=== PATIENT | male | born 1950 | race Caucasian/White ===

== ENCOUNTER 2018-03-13 09:43 | Inpatient (IN) | payer OTHER ==
[~2018-03-13] VITALS: Ht 182.9 cm; Wt 79.2 kg
[2018-03-13] VITALS (7 sets, daily range): BP systolic 172–190; BP diastolic 81–93; PULSE 44–69; RESP 16–18; TEMP 98.1–98.4; O2SAT 97–99
[2018-03-13] MEDS ORDERED: PRAV80TA2 PO (10:18)
[2018-03-13] MEDS ORDERED: GLUC500T4 PO (10:18)
[2018-03-13] MEDS ORDERED: LOSA100T PO (10:18)
[2018-03-13] MEDS ORDERED: HYDR12.57 PO (10:18)
[2018-03-13] MEDS ORDERED: FLUO10TA PO (10:18)
[2018-03-13] MEDS ORDERED: HYDR-755 PO (10:18)
[2018-03-13] MEDS ORDERED: METF1000 PO (10:18)
[2018-03-13] MEDS ORDERED: SODIUM CHLORIDE 0.9% FLUSH 10 ML FLUSH IVF PRN (11:00)
--- NOTE | 2018-03-13 11:20 | RADRPT ---
EXAM DATE/TIME: 03/13/2018 10:52 [facility] COMPARISON: No previous studies available for comparison. INDICATIONS : Syncope. Facial numbness. MEDICAL HISTORY : Hypertension. Diabetes SURGICAL HISTORY : Tonsillectomy. ENCOUNTER: Initial ACUITY: 3 days PAIN SCORE: 0/10 LOCATION: Bilateral chest FINDINGS: Minimal linear parenchymal opacities at the left lung base. Cardiomediastinal contours are within nor mal limits. Bony thorax is intact. CONCLUSION: 1. Minimal left lung base atelectasis/scarring. Senthil Davison MD on March 13, 2018 at 11:17 Board Certified Radiologist. This report was verified electronically.
[2018-03-13 11:21] LABS: AUTOMATED NEUTROPHIL # 5.7 TH/MM3 (1.8-7.7); BASOPHIL % 0.5 % (0.0-2.0); EOSINOPHIL # 0.1 TH/MM3 (0-0.4); EOSINOPHIL % 1.3 % (0.0-4.0); HEMATOCRIT 47.4 % (39.0-51.0); LYMPH % 18.7 % (9.0-44.0); LYMPHOCYTE # 1.4 TH/MM3 (1.0-4.8); MEAN CORPUSCULAR HGB CONC 33.8 % (32.0-36.0); MEAN PLATELET VOLUME 8.7 FL (7.0-11.0); MONO % 5.2 % (0.0-8.0); MONOCYTE # 0.4 TH/MM3 (0-0.9); NEUT % 74.3 % (16.0-70.0); PLATELET COUNT 260 TH/MM3 (150-450); RED BLOOD COUNT 5.33 MIL/MM3 (4.50-5.90); RED CELL DISTRIBUTION WIDTH 13.3 % (11.6-17.2); WHITE BLOOD COUNT 7.6 TH/MM3 (4.0-11.0)
--- NOTE | 2018-03-13 11:30 | RADRPT ---
EXAM DATE/TIME: 03/13/2018 11:10 [facility] COMPARISON: No previous studies available for comparison. INDICATIONS : Right sided headache, slurred speech and left facial numbness RADIATION DOSE: 35.45 CTDIvol (mGy) MEDICAL HISTORY : Hypertension. Diabetes mellitus type 2. SURGICAL HISTORY : None. ENCOUNTER: Initial ACUITY: 3 days PAIN SCALE: 4/10 LOCATION: Right cranial TECHNIQUE: Multiple contiguous axial images were obtained of the head. Using automated exposure control and adj ustment of the mA and/or kV according to patient size, radiation dose was kept as low as reasonably a chievable to obtain optimal diagnostic quality images. DICOM format image data is available electro nically for review and comparison. FINDINGS: CEREBRUM: Mild diffuse cerebral atrophy. The ventricles are normal for degree of atrophy. No evidence of midli ne shift, mass lesion, hemorrhage or acute infarction. No extra-axial fluid collections are seen. POSTERIOR FOSSA: The cerebellum and brainstem are intact. The 4th ventricle is midline. The cerebellopontine angle i s unremarkable. EXTRACRANIAL: The visualized portion of the orbits is intact. SKULL: The calvaria is intact. No evidence of skull fracture. CONCLUSION: 1. Senescent changes without acute intracranial abnormality. Senthil Davison MD on March 13, 2018 at 11:25 Board Certified Radiologist. This report was verified electronically.
[2018-03-13 11:32] LABS: PROTHROMBIN TIME - PATIENT 10.3 SEC (9.8-11.6)
[2018-03-13 11:35] LABS: ALBUMIN 3.9 GM/DL (3.4-5.0); ALT (GPT) 22 U/L (12-78); AST (GOT) 15 U/L (15-37); BICARBONATE 31.9 MEQ/L (21.0-32.0); BLOOD UREA NITROGEN 10 MG/DL (7-18); CALCIUM 9.6 MG/DL (8.5-10.1); CHLORIDE 103 MEQ/L (98-107); CREATININE 1.03 MG/DL (0.60-1.30); GLOMERULAR FILTRATION RATE 72 ML/MIN (>89); GLUCOSE,RANDOM 177 MG/DL (74-106); SODIUM (NA) 141 MEQ/L (136-145)
[2018-03-13 11:40] LABS: ALKALINE PHOSPHATASE 86 U/L (45-117); TOTAL BILIRUBIN ADULT 0.9 MG/DL (0.2-1.0); TOTAL PROTEIN 7.2 GM/DL (6.4-8.2); TROPONIN I LESS THAN 0.02 NG/ML (0.02-0.05)
--- NOTE | 2018-03-13 12:40 | PD ---
HPI Chief Complaint: Neuro Symptoms/ Deficits Time Seen by Provider: 10:35 Travel History International Travel<30 days: No Contact w/Intl Traveler<30days: No Traveled to known affect area: No History of Present Illness HPI Patient presents to the emergency department for possible stroke. Went to the [place] clinic this morning because yesterday he had a left-sided headache, slurred speech, and this morning he stated that his balance was off and he had numbness in left side of his face and arm. He denies chest pain, dyspnea, nausea, vomiting, fever, chills, vision change, and no current numbness or tingling. He did not take his medication today. PFSH Past Medical History Diabetes: Yes Patient Takes Glucophage: Yes Hypertension: Yes Tetanus Vaccination: > 5 Years Influenza Vaccination: No Past Surgical History Tonsillectomy: Yes Social History Alcohol Use: No Tobacco Use: No Substance Use: No Allergies-Medications (Allergen,Severity, Reaction): Coded Allergies: Sulfa (Sulfonamide Antibiotics) (Verified Allergy, Intermediate, 03/13/18) simvastatin (Verified Allergy, Intermediate, 03/13/18) Iodinated Contrast- Oral and IV Dye (Verified Allergy, Unknown, 03/13/18) Reported Meds & Prescriptions Reported Meds & Active Scripts Active Reported Glucosamine-Chondroitin 500-400 Mg Tab 1 Tab PO DAILY Pravastatin 80 Mg Tab 80 Mg PO HS Metformin (Metformin HCl) 1,000 Mg Tab 500 Mg PO BIDPC Hydrochlorothiazide 12.5 Mg Cap 12.5 Mg PO DAILY Review of Systems Except as stated in HPI: all other systems reviewed are Neg Physical Exam Narrative GENERAL: No acute distress SKIN: Focused skin assessment warm/dry. HEAD: Atraumatic. Normocephalic. EYES: Pupils equal and round. No scleral icterus. No injection or drainage. ENT: No nasal bleeding or discharge. Mucous membranes pink and moist. NECK: Trachea midline. No JVD. CARDIOVASCULAR: Regular rate and rhythm. No murmur appreciated. RESPIRATORY: No accessory muscle use. Clear to auscultation. Breath sounds equal bilaterally. GASTROINTESTINAL: Abdomen soft, non-tender, nondistended. Hepatic and splenic margins not palpable. MUSCULOSKELETAL: No obvious deformities. No clubbing. No cyanosis. No edema. NEUROLOGICAL: Awake and alert. No obvious cranial nerve deficits. Motor grossly within normal limits. Slightly slurred speech. Sensation intact bilaterally. PSYCHIATRIC: Appropriate mood and affect; insight and judgment normal. Data Data Last Documented VS Vital Signs Date Time Temp Pulse Resp B/P (MAP) Pulse Ox O2 Delivery O2 Flow Rate FiO2 03/13/18 11:42 66 18 172/82 (112) 99 Room Air 03/13/18 09:51 98.1 Orders Orders Electrocardiogram (03/13/18 ) Electrocardiogram (03/13/18 10:46) Prothrombin Time / Inr (Pt) (03/13/18 10:46) Act Partial Throm Time (Ptt) (03/13/18 10:46) Complete Blood Count With Diff (03/13/18 10:46) Comprehensive Metabolic Panel (03/13/18 10:46) Creatine Kinase (Cpk) (03/13/18 10:46) Drug Screen, Random Urine (03/13/18 10:46) Troponin I (03/13/18 10:46) Urinalysis - C+S If Indicated (03/13/18 10:46) Ct Brain W/O Iv Contrast(Rout) (03/13/18 10:46) Chest, Single Ap (03/13/18 10:46) Ecg Monitoring (03/13/18 10:46) Iv Access Insert/Monitor (03/13/18 10:46) Oximetry (03/13/18 10:46) Sodium Chloride 0.9% Flush (Ns Flush) (03/13/18 11:00) Ckmb (Isoenzyme) Profile (03/13/18 10:46) Hydrochlorothiazide (Microzide) (03/13/18 12:45) Labs Laboratory Tests Test 03/13/18 10:15 White Blood Count 7.6 TH/MM3 Red Blood Count 5.33 MIL/MM3 Hemoglobin 16.0 GM/DL Hematocrit 47.4 % Mean Corpuscular Volume 89.0 FL Mean Corpuscular Hemoglobin 30.0 PG Mean Corpuscular Hemoglobin Concent 33.8 % Red Cell Distribution Width 13.3 % Platelet Count 260 TH/MM3 Mean Platelet Volume 8.7 FL Neutrophils (%) (Auto) 74.3 % Lymphocytes (%) (Auto) 18.7 % Monocytes (%) (Auto) 5.2 % Eosinophils (%) (Auto) 1.3 % Basophils (%) (Auto) 0.5 % Neutrophils # (Auto) 5.7 TH/MM3 Lymphocytes # (Auto) 1.4 TH/MM3 Monocytes # (Auto) 0.4 TH/MM3 Eosinophils # (Auto) 0.1 TH/MM3 Basophils # (Auto) 0.0 TH/MM3 CBC Comment DIFF FINAL Differential Comment Prothrombin Time 10.3 SEC Prothromb Time International Ratio 1.0 RATIO Activated Partial Thromboplast Time 25.2 SEC Blood Urea Nitrogen 10 MG/DL Creatinine 1.03 MG/DL Random Glucose 177 MG/DL Total Protein 7.2 GM/DL Albumin 3.9 GM/DL Calcium Level 9.6 MG/DL Alkaline Phosphatase 86 U/L Aspartate Amino Transf (AST/SGOT) 15 U/L Alanine Aminotransferase (ALT/SGPT) 22 U/L Total Bilirubin 0.9 MG/DL Sodium Level 141 MEQ/L Potassium Level 3.7 MEQ/L Chloride Level 103 MEQ/L Carbon Dioxide Level 31.9 MEQ/L Anion Gap 6 MEQ/L Estimat Glomerular Filtration Rate 72 ML/MIN Total Creatine Kinase 46 U/L Troponin I LESS THAN 0.02 NG/ML MDM Medical Decision Making Medical Screen Exam Complete: Yes Emergency Medical Condition: Yes Interpretation(s) Labs: Elevated glucose; urinalysis pending at time of admission, admit team to follow. Last Impressions Head CT 03/13/18 104 Signed Impressions: Service Date/Time: Tuesday, March 13, 2018 11:10 - CONCLUSION: 1. Senescent changes without acute intracranial abnormality. Senthil Davison MD Chest X-Ray 03/13/18 1046 Signed Impressions: Service Date/Time: Tuesday, March 13, 2018 10:52 - CONCLUSION: 1. Minimal left lung base atelectasis/scarring. Senthil Davison MD ECG sinus bradycardia at 56, LVH, insignificant Q in 1 and aVL Differential Diagnosis CVA versus TIA Narrative Course Patient presents to the emergency department with resolved headache, poor balance, slurred speech, numbness left side of the face and arm that has resolved. Will check chest x-ray, head CT, EKG, enzymes, CBC, chemistry, UA. Also give a dose of BP med as patient did not take his meds this morning. Diagnosis Primary Impression: Transient ischemic attack Qualified Codes: G45.9 - Transient cerebral ischemic attack, unspecified Additional Impression: Hypertension Qualified Codes: I10 - Essential (primary) hypertension Admitting Information Admitting Physician Requests: Admit Condition: Stable Alysa Davis MD March 13, 2018 12:40
[2018-03-13] MEDS ORDERED: HYDROCHLOROTHIAZIDE 12.5 MG CAP PO ONE (12:45)
[2018-03-13] MEDS ORDERED: GLUCAGON 1 MG/ML VIAL OTHER PRN (13:00)
[2018-03-13] MEDS ORDERED: DEXTROSE 50% IN WATER 50 ML VIAL(D50) IV PUSH PRN (13:00)
[2018-03-13] MEDS ORDERED: SODIUM CHLOR 0.9% 1000 ML INJ 1,000 ML IV SCH (13:00)
[2018-03-13] MEDS ORDERED: ENALAPRILAT 1.25 MG/ML VIAL IV PUSH PRN (13:15)
--- NOTE | 2018-03-13 13:19 | HHI.HP ---
[facility] Service [facility] Primary Care Physician [facility] Admission Diagnosis TIA Diagnoses: (1) Transient ischemic attack Diagnosis: Principal Chief Complaint: slurred speech Travel History International Travel<30 Days: No Contact w/Intl Traveler <30 Da: No Traveled to Known Affected Are: No History of Present Illness patient is a 67 y/o male with history of hypertension, diabetes mellitus and dyslipidemia who presented to ER with slurred speech. he says that he woke up this morning and his noticed that his speech was slurred. although the family said that he wasn't doing fine last night with some headache. he denies any focal weakness, dizziness. he went to [place] today where he was referred to the hospital. he denies any chest pain or sob. he doesn't recall any similar symptoms in the past. Review of Systems Constitutional: DENIES: Fever, Weight loss, Chills, Night Sweats Eyes: DENIES: Blurred vision, Diplopia, Vision loss, Double Vision Ears, nose, mouth, throat: DENIES: Tinnitus, Vertigo, Throat pain, Epistaxis Respiratory: DENIES: Apneas, Cough, Snoring, Wheezing, Hemoptysis, Sputum production, Shortness of breath Cardiovascular: DENIES: Chest pain, Palpitations, Syncope, Dyspnea on Exertion , PND, Lower Extremity Edema, Orthopnea, Claudication Gastrointestinal: DENIES: Abdominal pain, Black stools, Bloody stools, Constipation, Diarrhea, Nausea, Vomiting, Difficulty Swallowing, Anorexia Genitourinary: DENIES: Urinary frequency, Urgency, Hematuria, Dysuria Musculoskeletal: DENIES: Joint pain, Muscle aches, Stiffness, Joint Swelling Integumentary: DENIES: Rash Neurologic: COMPLAINS OF: Speech Problems, DENIES: Abnormal gait, Headache, Localized weakness, Paresthesias, Seizures, Tremor, Poor Balance Psychiatric: DENIES: Anxiety, Confusion, Mood changes, Depression, Hallucinations, Agitation, Suicidal Ideation, Homicidal Ideation, Delusions Past Family Social History Past Medical History hypertension/ diabetes mellitus/ dyslipidemia Past Surgical History none reported. Reported Medications Glucosamine-Chondroitin 500-400 Mg Tab 1 Tab PO DAILY Pravastatin 80 Mg Tab 80 Mg PO HS Metformin (Metformin HCl) 1,000 Mg Tab 500 Mg PO BIDPC Hydrochlorothiazide 12.5 Mg Cap 12.5 Mg PO DAILY Allergies: Coded Allergies: Sulfa (Sulfonamide Antibiotics) (Verified Allergy, Intermediate, 03/13/18) simvastatin (Verified Allergy, Intermediate, 03/13/18) Iodinated Contrast- Oral and IV Dye (Verified Allergy, Unknown, 03/13/18) Active Ordered Medications Inpatient Medications Dextrose (D50w (Vial) Inj) 50 ml UNSCH PRN IV PUSH HYPOGLYCEMIA-SEE COMMENTS; Start 03/13/18 at 13:00 Glucagon (Glucagon Inj) 1 mg UNSCH PRN OTHER HYPOGLYCEMIA-SEE COMMENTS; Start 03/13/18 at 13:00 Hydrochlorothiazide (Microzide) 12.5 mg ONCE ONCE PO Last administered on 03/13at 12:57; Start 03/13/18 at 12:45; Stop 03/13/18 at 12:46; Status DC Insulin Aspart (NovoLOG SUPPLEMENTAL SCALE) 1 ACHS SLIDING SCALE SQ ; Start at 17:00 Sodium Chloride 1,000 ml @ 100 mls/hr Q10H IV ; Start 03/13/18 at 13:00 Sodium Chloride (NS Flush) 2 ml UNSCH PRN IVF FLUSH AFTER USING IV ACCESS; Start 03/13/18 at 11:00 Family History stroke in father and brother. Social History no smoking or drinking. Physical Exam Vital Signs Vital Signs Date Time Temp Pulse Resp B/P (MAP) Pulse Ox O2 Delivery O2 Flow Rate FiO2 03/13/18 11:42 66 18 172/82 (112) 99 Room Air 03/13/18 10:05 61 18 182/88 (119) 97 Room Air 03/13/18 10:01 57 18 98 Room Air 03/13/18 09:51 98.1 69 18 176/93 (120) 99 Physical Exam GENERAL: This is a well-nourished, well-developed patient, in no apparent distress. SKIN: No rashes, ecchymoses or lesions. Cool and dry. HEAD: Atraumatic. Normocephalic. No temporal or scalp tenderness. EYES: Pupils equal round and reactive. Extraocular motions intact. No scleral icterus. No injection or drainage. ENT: Nose without bleeding, purulent drainage or septal hematoma. Throat without erythema, tonsillar hypertrophy or exudate. Uvula midline. Airway patent. NECK: Trachea midline. No JVD or lymphadenopathy. Supple, nontender, no meningeal signs. CARDIOVASCULAR: Regular rate and rhythm without murmurs, gallops, or rubs. RESPIRATORY: Clear to auscultation. Breath sounds equal bilaterally. No wheezes , rales, or rhonchi. GASTROINTESTINAL: Abdomen soft, non-tender, nondistended. No hepato-splenomegaly , or palpable masses. No guarding. MUSCULOSKELETAL: Extremities without clubbing, cyanosis, or edema. No joint tenderness, effusion, or edema noted. No calf tenderness. Negative Homans sign bilaterally. NEUROLOGICAL: Awake and alert. Cranial nerves II through XII intact. Motor and sensory grossly within normal limits. Five out of 5 muscle strength in all muscle groups. Normal speech. Laboratory Laboratory Tests Test 03/13/18 10:15 White Blood Count 7.6 Red Blood Count 5.33 Hemoglobin 16.0 Hematocrit 47.4 Mean Corpuscular Volume 89.0 Mean Corpuscular Hemoglobin 30.0 Mean Corpuscular Hemoglobin Concent 33.8 Red Cell Distribution Width 13.3 Platelet Count 260 Mean Platelet Volume 8.7 Neutrophils (%) (Auto) 74.3 Lymphocytes (%) (Auto) 18.7 Monocytes (%) (Auto) 5.2 Eosinophils (%) (Auto) 1.3 Basophils (%) (Auto) 0.5 Neutrophils # (Auto) 5.7 Lymphocytes # (Auto) 1.4 Monocytes # (Auto) 0.4 Eosinophils # (Auto) 0.1 Basophils # (Auto) 0.0 CBC Comment DIFF FINAL Differential Comment Prothrombin Time 10.3 Prothromb Time International Ratio 1.0 Activated Partial Thromboplast Time 25.2 Blood Urea Nitrogen 10 Creatinine 1.03 Random Glucose 177 Total Protein 7.2 Albumin 3.9 Calcium Level 9.6 Alkaline Phosphatase 86 Aspartate Amino Transf (AST/SGOT) 15 Alanine Aminotransferase (ALT/SGPT) 22 Total Bilirubin 0.9 Sodium Level 141 Potassium Level 3.7 Chloride Level 103 Carbon Dioxide Level 31.9 Anion Gap 6 Estimat Glomerular Filtration Rate 72 Total Creatine Kinase 46 Troponin I LESS THAN 0.02 Result Diagram: 03/13/18 1015 03/13/18 1015 Imaging Last Impressions Head CT 03/13/18 1046 Signed Impressions: Service Date/Time: Tuesday, March 13, 2018 11:10 - CONCLUSION: 1. Senescent changes without acute intracranial abnormality. Senthil Davison MD Chest X-Ray 03/13/18 1046 Signed Impressions: Service Date/Time: Tuesday, March 13, 2018 10:52 - CONCLUSION: 1. Minimal left lung base atelectasis/scarring. Senthil Davison MD EKG; sinus rhythm with no acute ST-T changes. Caprini VTE Risk Assessment Caprini VTE Risk Assessment: Mod/High Risk (score >= 2) Caprini Risk Assessment Model Point Value = 1 Point Value = 2 Point Value = 3 Point Value = 5 Age 41-60 Minor surgery BMI > 25 kg/m2 Swollen legs Varicose veins or History of unexplained or recurrent spontaneous Oral contraceptives or hormone replacement Sepsis (< 1 month) Serious lung disease, including pneumonia (< 1 month) Abnormal pulmonary function Acute myocardial infarction Congestive heart failure (< 1 month) History of inflammatory bowel disease Medical patient at bed rest Age 61-74 Arthroscopic surgery Major open surgery (> 45 min) Laparoscopic surgery (> 45 min) Malignancy Confined to bed (> 72 hours) Immobilizing plaster cast Central venous access Age >= 75 History of VTE Family history of VTE Factor V Leiden Prothrombin [id number] Lupus anticoagulant Anticardiolipin antibodies Elevated serum homocysteine Heparin-induced thrombocytopenia Other congenital or acquired thrombophilia Stroke (< 1 month) Elective arthroplasty Hip, pelvis, or leg fracture Acute spinal cord injury (< 1 month) Prophylaxis Regimen Total Risk Factor Score Risk Level Prophylaxis Regimen 0-1 Low Early ambulation 2 Moderate Order ONE of the following: *Sequential Compression Device (SCD) *Heparin 5000 units SQ BID 3-4 Higher Order ONE of the following medications: *Heparin 5000 units SQ TID *Enoxaparin/Lovenox 40 mg SQ daily (WT < 150 kg, CrCl > 30 mL/min) *Enoxaparin/Lovenox 30 mg SQ daily (WT < 150 kg, CrCl > 10-29 mL/min) *Enoxaparin/Lovenox 30 mg SQ BID (WT < 150 kg, CrCl > 30 mL/min) AND/OR *Sequential Compression Device (SCD) 5 or more Highest Order ONE of the following medications: *Heparin 5000 units SQ TID (Preferred with Epidurals) *Enoxaparin/Lovenox 40 mg SQ daily (WT < 150 kg, CrCl > 30 mL/min) *Enoxaparin/Lovenox 30 mg SQ daily (WT < 150 kg, CrCl > 10-29 mL/min) *Enoxaparin/Lovenox 30 mg SQ BID (WT < 150 kg, CrCl > 30 mL/min) AND *Sequential Compression Device (SCD) Assessment and Plan Assessment and Plan A/P - possible TIA vs CVA CT head with no acute abnormality. start on aspirin and continue statin- will check MRI/MRA brain, carotid doppler , echo and lipid panel- consult neurology/ PT and ST. -hypertension; hold home meds- permissive hypertension for now till MRI resulted - vasotec prn. -diabetes mellitus; hold metformin- accu-check with SSI -DVT prophylaxis with SCD's Discussed Condition With ER physician, the patient and his family. Physician Certification 2 Midnight Certification Type: Admission for Inpatient Services Order for Inpatient Services The services are ordered in accordance with Medicare regulations or non- Medicare payer requirements, as applicable. In the case of services not specified as inpatient-only, they are appropriately provided as inpatient services in accordance with the 2-midnight benchmark. Estimated LOS (days): 2 days is the estimated time the patient will need to remain in the hospital, assuming treatment plan goals are met and no additional complications. Post-Hospital Plan: Home Health Problem Qualifiers (1) Transient ischemic attack: Qualified Codes: G45.9 - Transient cerebral ischemic attack, unspecified Beni Rangel MD March 13, 2018 13:19
[2018-03-13 13:28] LABS: BILIRUBIN, URINE NEG (NEG); BLOOD, URINE NEG (NEG); GLUCOSE,URINE NEG (NEG); KETONE, URINE NEG (NEG); MUCUS URINE FEW /lpf (OCC); NITRITE,URINE NEG (NEG); PH, URINE 6.5 (5.0-8.5); URINE COLOR YELLOW (YELLW/STRAW); URINE LEUKOCYTE ESTERASE SMALL (NEG)
[2018-03-13] MEDS ORDERED: ASPIRIN EC 81 MG TABEC PO SCH (14:00)
--- NOTE | 2018-03-13 14:00 | RADRPT ---
EXAM DATE/TIME: 03/13/2018 13:25 [facility] COMPARISON: No previous studies available for comparison. INDICATIONS : Cerebrovascular accident. MEDICAL HISTORY : Hypertension. Diabetes. SURGICAL HISTORY : Tonsillectomy. ENCOUNTER: Initial ACUITY: 1 day PAIN SCORE: 0/10 LOCATION: Bilateral neck PEAK SYSTOLIC VELOCITIES (cm/sec): ICA/CCA RATIO: Right: 1.2 Left: 0.9 ICA: Right: 107 Left: 107 CCA: Right: 92 Left: 118 ECA: Right: 124 Left: 77 VERTEBRAL: Right: 50 antegrade Left: 60 antegrade Elevated flow velocities and ICA/CCA ratios have been found to correlate with increased degrees of vessel stenosis, calculated as percentage of diameter relative to a normal segment of distal ICA/CCA FINDINGS: RIGHT CAROTID: There is moderate atherosclerotic plaquing at the bifurcation. The waveform is within normal limits. LEFT CAROTID: There is mild atherosclerotic plaquing at the bifurcation. The waveform is within normal limits. VERTEBRAL ARTERIES: Antegrade flow is seen in both vertebral arteries. MISCELLANEOUS: None. CONCLUSION: 1. Atherosclerotic plaquing of the bifurcations. No hemodynamically significant carotid artery stenos is identified. Piter Chau MD on March 13, 2018 at 13:56 Board Certified Radiologist. This report was verified electronically.
--- NOTE | 2018-03-13 14:37 | RADRPT ---
EXAM DATE/TIME: 03/13/2018 14:06 [facility] COMPARISON: MRI BRAIN W/O CONTRAST, March 13, 2018, 14:06. INDICATIONS : CVA. Slurred speech for one day. MEDICAL HISTORY : Diabetes mellitus type 2. SURGICAL HISTORY : Nose sx. ENCOUNTER: Initial ACUITY: 1 day PAIN SCORE: 2/10 LOCATION: Bilateral cranial Please note a normal MRA of the brain does not entirely exclude the possibility of a small aneurysm, nor the possibility of distal intracranial vessel disease. TECHNIQUE: 3D time of flight MRA was performed. Source images, multiplanar STS MIP, and 3D volume MIP reconstru ctions were reviewed. FINDINGS: Anterior circulation: Distal intracranial internal carotid arteries are patent with flow extending to the middle and anteri or cerebral arteries. There is no evidence for aneurysm, vessel truncation or stenosis, and no eviden ce for vascular malformation. Posterior circulation: Symmetric distal vertebral arteries with flow extending to basilar artery. There is no evidence for aneurysm, vessel truncation or stenosis, and no evidence for vascular malformation. CONCLUSION: 1. Unremarkable MRA examination. Specifically, no evidence for large vessel occlusion or significant stenosis. Senthil Davison MD on March 13, 2018 at 14:31 Board Certified Radiologist. This report was verified electronically.
--- NOTE | 2018-03-13 14:42 | RADRPT ---
EXAM DATE/TIME: 03/13/2018 14:06 [facility] COMPARISON: No previous studies available for comparison. INDICATIONS : CVA. Slurred speech for one day. MEDICAL HISTORY : Diabetes mellitus type 2. SURGICAL HISTORY : Nose sx. ENCOUNTER: Initial ACUITY: 1 day PAIN SCORE: 2/10 LOCATION: Bilateral cranial TECHNIQUE: Multiplanar, multisequence MRI of the brain was performed without contrast. FINDINGS: CEREBRUM: Mild diffuse cerebral volume loss. The ventricles are normal for age. No evidence of midline shift, mass lesion, hemorrhage or acute infarction. No extraaxial fluid collections are seen. The pituitar y gland and suprasellar cistern are normal in configuration. WHITE MATTER: Zegf-al-ifabsova periventricular and scattered focal deep white matter T2 prolongation. POSTERIOR FOSSA: Focal region of increased flair and decreased T1 signal in the left liz with associated restricted d iffusion. The cerebellum and brainstem are otherwise intact. The 4th ventricle is midline. The cereb ellopontine angle is unremarkable. The cerebellar tonsils are normal in position. DIFFUSION IMAGING: No additional focal areas of restricted diffusion are seen. No evidence of acute infarction. EXTRACRANIAL: The visualized portions of the orbits and paranasal sinuses are unremarkable. CONCLUSION: 1. Findings consistent with small acute infarct in the left liz. 2. Senescent changes with mild to moderate small vessel periventricular ischemic white matter [place]. Senthil Davison MD on March 13, 2018 at 14:35 Board Certified Radiologist. This report was verified electronically.
--- NOTE | 2018-03-13 17:16 | MB ---
cc: Miguel Osorio MD DATE: 03/13/2018 HISTORY OF PRESENT ILLNESS: A 67-year-old right-handed man with a history of hypertension, non-insulin dependent diabetes, hypercholesterolemia, does not take an aspirin a day. He woke up this morning with slurred speech. He thinks it has gotten maybe a little better. SOCIAL HISTORY: Not a smoker or a drinker. Lives with his . FAMILY HISTORY: Positive for cancer and stroke in his brother. Negative for seizure. REVIEW OF SYSTEMS: He denies any insulin. He denies any history of ME, CABG, cardiac arrhythmia, stent, angioplasty, AFib, Coumadin, chest pain, palpitations. He did have a headache yesterday, fairly severe, and occasionally gets a severe headache. He denies any renal, hepatic or pulmonary disease, thyroid disease, lupus, ulcer, cancer, seizure or stroke. PHYSICAL EXAMINATION: GENERAL: On exam, he has been in sinus rhythm here. NECK: There were no carotid bruits. HEART: Regular rate and rhythm. I do not detect a murmur. VITAL SIGNS: Afebrile, 52, 16, 190/85. NEUROLOGICAL EXAMINATION: Pupils are equal. Visual gutiérrez are full. Face has a hint of a slight droopiness on the right side, but normal sensation. Tongue was midline. He had a slight right drift. No drift on the left. He had normal strength in upper and lower extremities bilaterally. DTRs are trace throughout. Toes downgoing bilaterally. Pinprick was diminished on the left arm and leg compared to the right, but intact in the face and also he is slightly ataxic on the right [id number], normal on the left. Speech is fluent. He is not aphasic, but slightly slurred. LABORATORY DATA: CBC is normal. Basic metabolic profile: Glucose 177, otherwise normal. GFR is normal. LFTs, troponin albumin, coags, urine drug screen, UA all normal. IMAGING STUDIES: He had an MRA of the white [place] of [place], which was read as normal. He had a carotid ultrasound which was read as negative. He had an MRI of the brain which shows a small acute stroke in the left liz. Review of the films shows on the FLAIR images some white matter spots, really more so on the right than the left in the white matter of the hemispheres. He has got a moderate intensity on the diffusion image, left pontine infarct, what we usually see is a rn hemodialysis charge that actually shows up on the T2 also. No hemorrhage in that area. MRA white [place] of [place] is normal. The basilar arteries and the vertebral arteries are quite robust. IMPRESSION: Probably a lacunar type infarct. He certainly has the risk factors for it. We will let his blood pressure run high, keep him on IV hydration, head of bed flat. They have put him on a statin here, which is good, and will give him 325 of aspirin. Looks like he refused an aspirin dose here. I will be following with you in the hospital. I will hold his blood pressure medication. We will check some additional blood work on him also and will do the usual stroke workup. MD NIRAJ Ureña/CHRISTINA , 04:56 PM , 05:16 PM
[2018-03-13] MEDS: SODIUM CHLOR 0.9% 1000 ML INJ 1,000 ML IV SCH (17:31)
[2018-03-13] MEDS: ASPIRIN EC 325 MG TABEC PO SCH (17:37)
[2018-03-13] MEDS: INSULIN ASPART SUPPLEMENTAL SCALE SQ SCH ×2 (17:41→20:51)
[2018-03-13] MEDS ORDERED: GADODIAMIDE PF 287 MG/ML 5 ML VIAL (for RAD MRI) IVCONTRAST ONE (19:42)
--- NOTE | 2018-03-13 19:55 | RADRPT ---
EXAM DATE/TIME: 03/13/2018 19:02 [facility] COMPARISON: No previous studies available for comparison. INDICATIONS : CVA, slurred speech and poor balance today. CONTRAST: 20 cc Omniscan (gadodiamide) IV MEDICAL HISTORY : Diabetes mellitus type 2. SURGICAL HISTORY : Nose sx. ENCOUNTER: Initial ACUITY: 1 day PAIN SCORE: 2/10 LOCATION: Bilateral cranial Percent stenosis is calculated using the diameter of the stenotic region over the diameter of the nor mal distal internal carotid artery. TECHNIQUE: Bolus infused MRA of the extracranial circulation was performed using a neurovascular coil. Post pro cessing was performed including rotating subvolume maximum intensity projections of each carotid nia ry, rotating full volume maximum intensity projections of both carotid arteries, sagittal and coronal sliding thin slab reformations of each carotid artery, and left oblique sliding thin slab reformatio n through the aortic arch to include the origin of the arch branch vessels. FINDINGS: AORTIC ARCH: There is a three vessel origin of the great vessels from the aorta. No evidence of ostial narrowing. RIGHT CAROTID: The common carotid artery is intact. The carotid bulb has a normal configuration without ulceration or narrowing. The internal carotid artery lumen is smooth without stenosis. The external carotid ar courtney is intact. LEFT CAROTID: The common carotid artery is intact. The carotid bulb has a normal configuration without ulceration or narrowing. The internal carotid artery lumen is smooth without stenosis. The external carotid ar courtney is intact. VERTEBRALS: The vertebral arteries have a symmetric diameter. No stenotic lesions are seen. CONCLUSION: Normal examination. Javon Peraza MD on March 13, 2018 at 19:51 Board Certified Radiologist. This report was verified electronically.
--- NOTE | 2018-03-13 20:40 | EKG ---
Date Performed: 03/13/2018 Time Performed: 10:02:13 PTAGE: 67 years EKG: SINUS BRADYCARDIA MINIMAL VOLTAGE CRITERIA FOR LVH BORDERLINE ECG NO PREVIOUS TRACING DOCTOR: Driss Stevens Interpretating Date/Time 03/13/2018 20:39:18
[2018-03-13] MEDS: PRAVASTATIN SOD 80 MG TAB PO SCH (20:44)
[2018-03-13 22:10] LABS: AST (GOT) 19 U/L (15-37); CHOLESTEROL 147 MG/DL (120-200)
[2018-03-14] VITALS (7 sets, daily range): BP systolic 156–174; BP diastolic 74–97; PULSE 52–64; RESP 16–18; TEMP 97.3–98.4; O2SAT 96–98
[2018-03-14] MEDS: SODIUM CHLOR 0.9% 1000 ML INJ 1,000 ML IV SCH ×2 (06:12→18:30)
--- NOTE | 2018-03-14 07:09 | HHI.PR ---
Subjective Remarks sb Objective Vital Signs Date Time Temp Pulse Resp B/P (MAP) Pulse Ox O2 Delivery O2 Flow Rate FiO2 03/14/18 06:00 97.4 64 16 162/74 (103) 97 03/14/18 04:00 61 03/14/18 00:00 97.3 52 16 156/75 (102) 98 03/13/18 23:50 44 03/13/18 22:00 59 03/13/18 20:00 98.1 56 17 182/81 (114) 98 03/13/18 19:00 98 Room Air 03/13/18 16:29 Room Air 03/13/18 16:00 98.4 62 16 190/85 (120) 98 03/13/18 15:57 03/13/18 11:42 66 18 172/82 (112) 99 Room Air 03/13/18 10:05 61 18 182/88 (119) 97 Room Air 03/13/18 10:01 57 18 98 Room Air 03/13/18 09:51 98.1 69 18 176/93 (120) 99 I/O 03/13/18 03/13/18 03/13/18 03/14/18 03/14/18 03/14/18 07:00 15:00 23:00 07:00 15:00 23:00 Intake Total 1240 ml Output Total 400 ml 200 ml Balance -400 ml 1040 ml Intake Oral 240 ml IV Total 1000 ml Output Urine Total 400 ml 200 ml # Bowel Movements 0 0 Result Diagram: 03/13/18 1015 03/13/18 1015 Objective Remarks vff minimal r droop 5/5 bue and ble speech clear mild r ataxia Assessment and Plan Assessment and Plan imp stable overnoc hob up 45 degrees if stable by noon could get oob keep ivf on and bp up asa statin fu echo prob dc tomorrow am Miguel Osorio MD March 14, 2018 07:09
[2018-03-14] MEDS: INSULIN ASPART SUPPLEMENTAL SCALE SQ SCH ×4 (08:00→20:30)
[2018-03-14 08:20] LABS: CHOLESTEROL/ HDL RATIO 4.36 RATIO; HDL CHOLESTEROL 29.1 MG/DL (40.0-60.0)
[2018-03-14] MEDS: ASPIRIN EC 325 MG TABEC PO SCH (08:46)
--- NOTE | 2018-03-14 11:03 | HHI.PR ---
Subjective Remarks Patient reports he is feeling better. States his speech is a little better. Right hand rn clinical strength is much better. Some mild right lower extremity weakness but he is able to ambulate. Objective Vitals Vital Signs Date Time Temp Pulse Resp B/P (MAP) Pulse Ox O2 Delivery O2 Flow Rate FiO2 03/14/18 08:00 60 03/14/18 08:00 97.7 55 18 161/93 (115) 97 03/14/18 06:00 97.4 64 16 162/74 (103) 97 03/14/18 04:00 61 03/14/18 00:00 97.3 52 16 156/75 (102) 98 03/13/18 23:50 44 03/13/18 22:00 59 03/13/18 20:00 98.1 56 17 182/81 (114) 98 03/13/18 19:00 98 Room Air 03/13/18 16:29 Room Air 03/13/18 16:00 98.4 62 16 190/85 (120) 98 03/13/18 15:57 03/13/18 11:42 66 18 172/82 (112) 99 Room Air I/O 03/13/18 03/13/18 03/13/18 03/14/18 03/14/18 03/14/18 07:00 15:00 23:00 07:00 15:00 23:00 Intake Total 1240 ml Output Total 400 ml 200 ml Balance -400 ml 1040 ml Intake Oral 240 ml IV Total 1000 ml Output Urine Total 400 ml 200 ml # Bowel Movements 0 0 Result Diagram: 03/13/18 1015 03/13/18 1015 Imaging Last Impressions Neck Magnetic Resonance Angiography 03/13/18 1652 Signed Impressions: Service Date/Time: Tuesday, March 13, 2018 19:02 - CONCLUSION: Normal examination. Javon Peraza MD Head CT 03/13/18 1046 Signed Impressions: Service Date/Time: Tuesday, March 13, 2018 11:10 - CONCLUSION: 1. Senescent changes without acute intracranial abnormality. Senthil Davison MD Chest X-Ray 03/13/18 1046 Signed Impressions: Service Date/Time: Tuesday, March 13, 2018 10:52 - CONCLUSION: 1. Minimal left lung base atelectasis/scarring. Senthil Davison MD Head Magnetic Resonance Angiography 03/13/18 Signed Impressions: Service Date/Time: Tuesday, March 13, 2018 14:06 - CONCLUSION: 1. Unremarkable MRA examination. Specifically, no evidence for large vessel occlusion or significant stenosis. Senthil Davison MD Carotid Artery Ultrasound 03/13/18 Signed Impressions: Service Date/Time: Tuesday, March 13, 2018 13:25 - CONCLUSION: 1. Atherosclerotic plaquing of the bifurcations. No hemodynamically significant carotid artery stenosis identified. Piter Chau MD Brain MRI 03/13/18 Signed Impressions: Service Date/Time: Tuesday, March 13, 2018 14:06 - CONCLUSION: 1. Findings consistent with small acute infarct in the left liz. 2. Senescent changes with mild to moderate small vessel periventricular ischemic white matter demyelination. Senthil Davison MD Objective Remarks GENERAL: This is a well-nourished, well-developed patient, in no apparent distress. CARDIOVASCULAR: Normal rate and regular rhythm without murmurs, gallops, or rubs. RESPIRATORY: Good respiratory efforts. Breath sounds equal and clear to auscultation bilaterally. GASTROINTESTINAL: Abdomen soft, non-tender, non-distended. Normal active bowel sounds MUSCULOSKELETAL: Extremities without cyanosis, or edema. NEURO: Minimal right facial droop. Alert & Oriented x4 to person, place, time, situation. Moves all ext x4. Right hand rn clinical strength is 4+ out of 5. Right lower extremity strength is 4+ out of 5 compared to 5 out of 5 on the left side. Mild dysarthria. PSYCH: Appropriate mood and affect. A/P Problem List: (1) Left pontine stroke ICD Code: I63.50 - Cerebral infarction due to unspecified occlusion or stenosis of unspecified cerebral artery (2) Transient ischemic attack ICD Code: G45.9 - Transient cerebral ischemic attack, unspecified Status: Acute (3) Hypertension ICD Code: I10 - Essential (primary) hypertension Status: Acute Assessment and Plan 67-year-old male with: Left pontine stroke: Symptoms significantly improved. -Continue aspirin and statin. 2D echocardiogram pending. Appreciate neurology following. PT and speech following. Hypertension: Continue to hold home medication. Permissive hypertension. Vasotec as needed. Plan to resume antihypertensives medications tomorrow. Diabetes mellitus; hold metformin- accu-check with SSI DVT prophylaxis with SCD's Discharge Planning Probable discharge tomorrow. Problem Qualifiers (1) Transient ischemic attack: Qualified Codes: G45.9 - Transient cerebral ischemic attack, unspecified (2) Hypertension: Qualified Codes: I10 - Essential (primary) hypertension Peggy Cheung MD March 14, 2018 11:03
--- NOTE | 2018-03-14 14:22 | HHI.DCPOC ---
Discharge Care Plan Diagnosis: (1) Left pontine stroke (2) Hypertension Goals to Promote Your Health * To prevent worsening of your condition and complications * To maintain your health at the optimal level Directions to Meet Your Goals Take your medications as prescribed Follow your dietary instruction Follow activity as directed Keep your appointments as scheduled Take your immunizations and boosters as scheduled If your symptoms worsen call your PCP, if no PCP go to Urgent Care Center or Emergency Room Smoking is Dangerous to Your Health. Avoid second hand smoke Call the 24-hour hour crisis hotline for domestic abuse at Peggy Cheung MD March 14, 2018 14:22
--- NOTE | 2018-03-14 17:21 | ECHRPT ---
Indication: CVA/TIA CONCLUSIONS Normal left ventricular size. Moderate concentric left ventricular hypertrophy. The left ventricular systolic function is normal with an estimated ejection fraction in the range of 55-60%. No atrial level shunt is demonstrated by color flow Doppler interrogation. Mild mitral annular calcification. There is trace tricuspid valve regurgitation. The pulmonary valve is not well visualized. BP: 161 / 93 HR: 55 Rhythm: Sinus MEASUREMENTS (Male / Female) Normal Values Technical Quality:Fair 2D ECHO LV Diastolic Diameter PLAX 3.6 cm 4.2 - 5.9 / 3.9 - 5.3 cm LV Systolic Diameter PLAX 2.7 cm IVS Diastolic Thickness 1.3 cm 0.6 - 1.0 / 0.6 - 0.9 cm LVPW Diastolic Thickness 1.3 cm 0.6 - 1.0 / 0.6 - 0.9 cm LV Relative Wall Thickness 0.7 RV Internal Dim ED PLAX 1.6 cm LVOT Diameter 1.8 cm Aortic Root Diameter 3.5 cm LA Systolic Diameter LX 3.2 cm 3.0 - 4.0 / 2.7 - 3.8 cm M-MODE AV Cusp Separation MM 1.8 cm DOPPLER AV Peak Velocity 114.0 cm/s AV Peak Gradient 5.2 mmHg AV Mean Gradient 3.0 mmHg AV Velocity Time Integral 24.2 cm LVOT Peak Velocity 70.7 cm/s LVOT Peak Gradient 2.0 mmHg LVOT Velocity Time Integral 15.7 cm AV Area Cont Eq vti 1.7 cm AV Area Cont Eq pk 1.6 cm LV E' Lateral Velocity 6.9 cm/s LV E' Septal Velocity 3.4 cm/s FINDINGS LEFT VENTRICLE Normal left ventricular size. Moderate concentric left ventricular hypertrophy. The left ventricular systolic function is normal with an estimated ejection fraction in the range of 55-60%. RIGHT VENTRICLE Normal right ventricular size and systolic function. LEFT ATRIUM The left atrial size is normal. RIGHT ATRIUM The right atrial size is normal. ATRIAL SEPTUM No atrial level shunt is demonstrated by color flow Doppler interrogation. AORTA The aortic root and proximal ascending aorta are normal in size on limited imaging. MITRAL VALVE Mild mitral annular calcification. AORTIC VALVE Trileaflet aortic valve. No aortic valve stenosis or regurgitation. TRICUSPID VALVE There is trace tricuspid valve regurgitation. PULMONARY VALVE The pulmonary valve is not well visualized. VESSELS The inferior vena cava is normal in size. PERICARDIUM No pericardial effusion. Elvin Han MD, FACC (Electronically Signed) Final Date:14 Mar 2018 17:20
[2018-03-14] MEDS: PRAVASTATIN SOD 80 MG TAB PO SCH (20:30)
[2018-03-15] VITALS (10 sets, daily range): BP systolic 149–186; BP diastolic 81–98; PULSE 48–76; RESP 16–20; TEMP 97.6–98.2; O2SAT 94–99
--- NOTE | 2018-03-15 07:38 | HHI.PR ---
Subjective Remarks sb sr Objective Vital Signs Date Time Temp Pulse Resp B/P (MAP) Pulse Ox O2 Delivery O2 Flow Rate FiO2 03/15/18 04:00 57 03/15/18 04:00 98.2 63 17 175/98 (123) 99 03/15/18 00:00 97.8 60 17 149/90 (109) 98 03/15/18 00:00 48 03/14/18 20:00 59 03/14/18 20:00 Room Air 03/14/18 20:00 98.0 54 16 174/97 (122) 98 03/14/18 16:00 98.4 62 18 168/85 (112) 97 03/14/18 16:00 Room Air 03/14/18 12:00 62 03/14/18 12:00 98.3 59 18 164/89 (114) 96 03/14/18 12:00 Room Air 03/14/18 08:00 60 03/14/18 08:00 Room Air 03/14/18 08:00 97.7 55 18 161/93 (115) 97 03/14/18 08:00 Room Air I/O 03/14/18 03/14/18 03/14/18 03/15/18 03/15/18 03/15/18 07:00 15:00 23:00 07:00 15:00 23:00 Intake Total 1240 ml 990 ml 0 ml Output Total 200 ml 950 ml Balance 1040 ml 990 ml -950 ml Intake Oral 240 ml 990 ml 0 ml IV Total 1000 ml Output Urine Total 200 ml 950 ml # Voids 2 # Bowel Movements 0 0 0 Result Diagram: 03/13/18 1015 03/13/18 1015 Objective Remarks vff minimal r droop 5/5 bue and ble speech clear mild r ataxia better nl gait Assessment and Plan Assessment and Plan imp lacunar pontine cva stable overnoc can dc later today ok to run bp 140-160m for three days then 120/70 asa 325 statin fish oil fu echo nl holter pend ok dc unless bp over 170/ fu office Miguel Osorio MD March 15, 2018 07:38
[2018-03-15] MEDS ORDERED: ASPI325T33 PO (07:57)
[2018-03-15] MEDS: INSULIN ASPART SUPPLEMENTAL SCALE SQ SCH ×4 (08:00→20:48)
--- NOTE | 2018-03-15 08:00 | HHI.DS ---
Discharge Summary Admission Date March 13, 2018 at 13:02 Discharge Date: March 16, 2018 Admitting Diagnosis TIA (1) Left pontine stroke ICD Code: I63.50 - Cerebral infarction due to unspecified occlusion or stenosis of unspecified cerebral artery (2) Transient ischemic attack ICD Code: G45.9 - Transient cerebral ischemic attack, unspecified Status: Acute (3) Hypertension ICD Code: I10 - Essential (primary) hypertension Status: Acute Procedures none Brief History - From Admission patient is a 67 y/o male with history of hypertension, diabetes mellitus and dyslipidemia who presented to ER with slurred speech. he says that he woke up this morning and his noticed that his speech was slurred. although the family said that he wasn't doing fine last night with some headache. he denies any focal weakness, dizziness. he went to [facility] today where he was referred to the hospital. he denies any chest pain or sob. he doesn't recall any similar symptoms in the past. CBC/BMP: 03/13/18 1015 03/13/18 1015 Significant Findings Laboratory Tests Test 03/13/18 10:15 03/13/18 13:00 03/13/18 20:20 03/14/18 04:05 Neutrophils (%) (Auto) 74.3 % (16.0-70.0) Random Glucose 177 MG/DL (74-106) Estimat Glomerular Filtration Rate 72 ML/MIN (>89) Troponin I LESS THAN 0.02 NG/ML Urine Leukocyte Esterase SMALL (NEG) Urine Mucus FEW /lpf (OCC) Triglycerides Level 168 MG/DL (42-150) HDL Cholesterol 29.1 MG/DL (40.0-60.0) Imaging Last Impressions Neck Magnetic Resonance Angiography 03/13/18 1652 Signed Impressions: Service Date/Time: Tuesday, March 13, 2018 19:02 - CONCLUSION: Normal examination. Javon Peraza MD Head CT 03/13/18 1046 Signed Impressions: Service Date/Time: Tuesday, March 13, 2018 11:10 - CONCLUSION: 1. Senescent changes without acute intracranial abnormality. Senthil Davison MD Chest X-Ray 03/13/18 1046 Signed Impressions: Service Date/Time: Tuesday, March 13, 2018 10:52 - CONCLUSION: 1. Minimal left lung base atelectasis/scarring. Senthil Davison MD Head Magnetic Resonance Angiography 03/13/18 0000 Signed Impressions: Service Date/Time: Tuesday, March 13, 2018 14:06 - CONCLUSION: 1. Unremarkable MRA examination. Specifically, no evidence for large vessel occlusion or significant stenosis. Senthil Davison MD Carotid Artery Ultrasound 03/13/18 0000 Signed Impressions: Service Date/Time: Tuesday, March 13, 2018 13:25 - CONCLUSION: 1. Atherosclerotic plaquing of the bifurcations. No hemodynamically significant carotid artery stenosis identified. Piter Chau MD Brain MRI 03/13/18 0000 Signed Impressions: Service Date/Time: Tuesday, March 13, 2018 14:06 - CONCLUSION: 1. Findings consistent with small acute infarct in the left liz. 2. Senescent changes with mild to moderate small vessel periventricular ischemic white matter demyelination. Senthil Davison MD PE at Discharge GENERAL: This is a well-nourished, well-developed patient, in no apparent distress. CARDIOVASCULAR: Normal rate and regular rhythm without murmurs, gallops, or rubs. RESPIRATORY: Good respiratory efforts. Breath sounds equal and clear to auscultation bilaterally. GASTROINTESTINAL: Abdomen soft, non-tender, non-distended. Normal active bowel sounds MUSCULOSKELETAL: Extremities without cyanosis, or edema. NEURO: Minimal right facial droop. Alert & Oriented x4 to person, place, time, situation. Moves all ext x4. Right hand recreation activities coordinator strength is 4+ out of 5. Right lower extremity strength is 4+ out of 5 compared to 5 out of 5 on the left side. Mild dysarthria. PSYCH: Appropriate mood and affect. Hospital Course 67-year-old male with: Left pontine stroke: Symptoms significantly improved. -Continue aspirin and statin. 2D echocardiogram reviewed normal EF 55-60%. Neurology consulted and followed. PT and speech following. PT recommends PT as OP. Hypertension: Permissive hypertension on admission. Vasotec as needed. Restart HCTZ and lisinopril is increased to 5mg po bid, to titrate to keep normotensive. Says he takes lisinopril at home. Patient to follow up as OP with PCP and neuro. Diabetes mellitus; hold metformin- accu-check with SSI. Resume metformin at home. Discharge home in stable condition to have PT as OP to follow up at [facility]. Patient is improving. Cleared by neurology for DC to follow up as OP with PCP and consultants Pt Condition on Discharge: Stable Discharge Disposition: Discharge Home Discharge Time: > 30 minutes Discharge Instructions DIET: Follow Instructions for: Heart Healthy Diet, Diabetic Diet Activities you can perform: Regular-No Restrictions Activities to Avoid: Driving Follow up Referrals: Appointment for Follow Up @ [facility] - 1 Week PCP Follow-up - 2-3 Days PCP Follow-up New Medications: Lisinopril (Lisinopril) 5 Mg Tab 5 MG PO BID for Blood Pressure Management, #60 TAB [address] (Aspirin EC) 325 Mg Tabdr 325 MG PO DAILY for Blood Clot Prevention for 30 Days, #30 TAB Continued Medications: Glucosamine-Chondroitin (Glucosamine-Chondroitin) 500-400 Mg Tab 1 TAB PO DAILY for Herbal Supplements, TAB 0 Refills Hydrochlorothiazide (Hydrochlorothiazide) 12.5 Mg Cap 12.5 MG PO DAILY, #30 CAP 0 Refills Metformin (Metformin) 1,000 Mg Tab 500 MG PO BIDPC for Blood Sugar Management, #60 TAB 0 Refills Pravastatin (Pravastatin) 80 Mg Tab 80 MG PO HS for Cholesterol Management, #30 TAB 0 Refills Leeann Melissa MD March 15, 2018 08:00
[2018-03-15] MEDS ORDERED: LISI2.5T3 PO (08:01)
[2018-03-15 08:27] LABS: ALT (GPT) 23 U/L (12-78); CHOLESTEROL/ HDL RATIO 3.93 RATIO; FOLATE GREATER THAN 20.0 NG/ML (3.1-17.5); FREE T4 0.89 NG/DL (0.76-1.46); HDL CHOLESTEROL 37.4 MG/DL (40.0-60.0); LDL CHOLESTEROL 78 MG/DL (0-99); TRIGLYCERIDES 160 MG/DL (42-150)
[2018-03-15 08:28] LABS: C-REACTIVE PROTEIN 0.36 MG/DL (0.00-0.30)
[2018-03-15] MEDS ORDERED: PILL SPLITTER OTHER PRN (08:30)
[2018-03-15] MEDS: ASPIRIN EC 325 MG TABEC PO SCH (08:39)
[2018-03-15] MEDS: SODIUM CHLOR 0.9% 1000 ML INJ 1,000 ML IV SCH (08:39)
[2018-03-15] MEDS ORDERED: LISI-519 PO (08:58)
[2018-03-15] MEDS ORDERED: LISINOPRIL 5 MG TAB PO SCH (09:00)
[2018-03-15] MEDS ORDERED: LISINOPRIL 5 MG TAB PO ONE (09:15)
--- NOTE | 2018-03-15 16:28 | HHI.PR ---
Subjective Remarks Follow-up pontine ischemic stroke. Pleasant. He is in bed he denies having any headaches. No change in vision. No new motor deficit. However his blood pressure is into higher side. Will DC fluids. Start lisinopril. Discussed with the patient with the family at bedside. Objective Vitals Vital Signs Date Time Temp Pulse Resp B/P (MAP) Pulse Ox O2 Delivery O2 Flow Rate FiO2 03/15/18 12:10 71 03/15/18 12:02 98.1 73 16 156/89 (111) 97 03/15/18 08:02 97.6 62 16 186/91 (122) 97 03/15/18 08:00 Nasal Cannula 2.00 03/15/18 07:43 59 03/15/18 04:00 57 03/15/18 04:00 98.2 63 17 175/98 (123) 99 03/15/18 00:00 97.8 60 17 149/90 (109) 98 03/15/18 00:00 48 03/14/18 20:00 59 03/14/18 20:00 Room Air 03/14/18 20:00 98.0 54 16 174/97 (122) 98 I/O 03/14/18 03/14/18 03/14/18 03/15/18 03/15/18 03/15/18 06:59 14:59 22:59 06:59 14:59 22:59 Intake Total 1240 ml 990 ml 0 ml 1020 ml Output Total 200 ml 950 ml Balance 1040 ml 990 ml -950 ml 1020 ml Intake Oral 240 ml 990 ml 0 ml IV Total 1000 ml 1020 ml Output Urine Total 200 ml 950 ml # Voids 2 # Bowel Movements 0 0 0 Result Diagram: 03/13/18 1015 03/13/18 1015 Imaging Last Impressions Neck Magnetic Resonance Angiography 03/13/18 1652 Signed Impressions: Service Date/Time: Tuesday, March 13, 2018 19:02 - CONCLUSION: Normal examination. Javon Peraza MD Head CT 03/13/18 1046 Signed Impressions: Service Date/Time: Tuesday, March 13, 2018 11:10 - CONCLUSION: 1. Senescent changes without acute intracranial abnormality. Senthil Davison MD Chest X-Ray 03/13/18 104 Signed Impressions: Service Date/Time: Tuesday, March 13, 2018 10:52 - CONCLUSION: 1. Minimal left lung base atelectasis/scarring. Senthil Davison MD Head Magnetic Resonance Angiography 03/13/18 Signed Impressions: Service Date/Time: Tuesday, March 13, 2018 14:06 - CONCLUSION: 1. Unremarkable MRA examination. Specifically, no evidence for large vessel occlusion or significant stenosis. Senthil Davison MD Carotid Artery Ultrasound 03/13/18 Signed Impressions: Service Date/Time: Tuesday, March 13, 2018 13:25 - CONCLUSION: 1. Atherosclerotic plaquing of the bifurcations. No hemodynamically significant carotid artery stenosis identified. Piter Chau MD Brain MRI 03/13/18 Signed Impressions: Service Date/Time: Tuesday, March 13, 2018 14:06 - CONCLUSION: 1. Findings consistent with small acute infarct in the left liz. 2. Senescent changes with mild to moderate small vessel periventricular ischemic white matter demyelination. Senthil Davison MD Objective Remarks GENERAL: This is a well-nourished, well-developed patient, in no apparent distress. CARDIOVASCULAR: Normal rate and regular rhythm without murmurs, gallops, or rubs. RESPIRATORY: Good respiratory efforts. Breath sounds equal and clear to auscultation bilaterally. GASTROINTESTINAL: Abdomen soft, non-tender, non-distended. Normal active bowel sounds MUSCULOSKELETAL: Extremities without cyanosis, or edema. NEURO: Minimal right facial droop. Alert & Oriented x4 to person, place, time, situation. Moves all ext x4. Right hand chair springer strength is 4+ out of 5. Right lower extremity strength is 4+ out of 5 compared to 5 out of 5 on the left side. Mild dysarthria. Procedures none A/P Problem List: (1) Left pontine stroke ICD Code: I63.50 - Cerebral infarction due to unspecified occlusion or stenosis of unspecified cerebral artery (2) Transient ischemic attack ICD Code: G45.9 - Transient cerebral ischemic attack, unspecified Status: Acute (3) Hypertension ICD Code: I10 - Essential (primary) hypertension Status: Acute Assessment and Plan 67-year-old male with: Left pontine stroke: Symptoms significantly improved. -Continue aspirin and statin. 2D echocardiogram reviewed normal EF 55-60%. Neurology consulted and followed. PT and speech following. PT recommends PT as OP. Hypertension: Permissive hypertension . Vasotec as needed. Stop HCTZ and will start lisinopril. 2.5 mg po daily to titrate to keep normotensive. Patient to follow up as OP with PCP and neuro. Diabetes mellitus; hold metformin- accu-check with SSI. Resume metformin at home. Discharge home. Discharge when cleared by neurology. DC when Blood pressure is better controlled. Problem Qualifiers (1) Transient ischemic attack: Qualified Codes: G45.9 - Transient cerebral ischemic attack, unspecified (2) Hypertension: Qualified Codes: I10 - Essential (primary) hypertension Leeann Melissa MD March 15, 2018 16:28
[2018-03-15] MEDS: HYDROCHLOROTHIAZIDE 12.5 MG CAP PO SCH (18:08)
[2018-03-15] MEDS: PRAVASTATIN SOD 80 MG TAB PO SCH (20:47)
[2018-03-15] MEDS: LISINOPRIL 5 MG TAB PO SCH (20:48)
[2018-03-16] VITALS: BP 115/92; PULSE 62; PULSE 74; RESP 19; TEMP 97.8; O2SAT 96
[2018-03-16 04:00] VITALS: BP 141/74; PULSE 55; PULSE 64; RESP 18; TEMP 97.6; O2SAT 97
[2018-03-16] MEDS ORDERED: LISI-519 PO (06:49)
[2018-03-16] MEDS: INSULIN ASPART SUPPLEMENTAL SCALE SQ SCH (08:00)
[2018-03-16 08:02] VITALS: BP 151/73; PULSE 67; RESP 16; TEMP 97.8; O2SAT 93
--- NOTE | 2018-03-16 08:28 | PD.PN.STU ---
Subjective Remarks Follow-up pontine ischemic stroke. Pt is feeling well and speech is slightly improved since yesterday. He denies headaches, change in vision, paresthesias, or new motor deficits. BP was elevated yesterday but is trending lower since last night after increasing dose of lisinopril. He did not get out of bed yesterday due to elevated BP, but would like to get out of bed today with PT/OT. Objective Vitals Vital Signs Date Time Temp Pulse Resp B/P (MAP) Pulse Ox O2 Delivery O2 Flow Rate FiO2 03/16/18 04:00 97.6 64 18 141/74 (96) 97 03/16/18 04:00 55 03/16/18 00:00 62 03/16/18 00:00 97.8 74 19 115/92 (100) 96 03/15/18 20:00 76 03/15/18 20:00 Room Air 03/15/18 19:00 98.2 74 20 176/81 (112) 94 03/15/18 16:02 98.2 73 17 178/97 (124) 96 03/15/18 15:50 71 03/15/18 12:10 71 03/15/18 12:02 98.1 73 16 156/89 (111) 97 I/O 03/15/18 03/15/18 03/15/18 03/16/18 03/16/18 03/16/18 07:00 15:00 23:00 07:00 15:00 23:00 Intake Total 0 ml 1020 ml 420 ml 480 ml Output Total 950 ml 1000 ml 600 ml Balance -950 ml 1020 ml -580 ml -120 ml Intake Oral 0 ml 420 ml 480 ml IV Total 1020 ml Output Urine Total 950 ml 1000 ml 600 ml # Bowel Movements 0 1 Result Diagram: 03/13/18 1015 03/13/18 1015 Objective Remarks Reported Meds & Active Scripts Active Lisinopril 5 Mg Tab 5 Mg PO BID Aspirin EC (Aspirin) 325 Mg Tabdr 325 Mg PO DAILY 30 Days Reported Glucosamine-Chondroitin 500-400 Mg Tab 1 Tab PO DAILY Pravastatin 80 Mg Tab 80 Mg PO HS Metformin (Metformin HCl) 1,000 Mg Tab 500 Mg PO BIDPC Hydrochlorothiazide 12.5 Mg Cap 12.5 Mg PO DAILY Vital Signs Date Time Temp Pulse Resp B/P (MAP) Pulse Ox O2 Delivery O2 Flow Rate FiO2 03/16/18 04:00 97.6 64 18 141/74 (96) 97 03/16/18 04:00 55 03/16/18 00:00 62 03/16/18 00:00 97.8 74 19 115/92 (100) 96 03/15/18 20:00 76 03/15/18 20:00 Room Air 03/15/18 19:00 98.2 74 20 176/81 (112) 94 03/15/18 16:02 98.2 73 17 178/97 (124) 96 03/15/18 15:50 71 03/15/18 12:10 71 03/15/18 12:02 98.1 73 16 156/89 (111) 97 Exam: GENERAL: Well-developed well-nourished patient, in no apparent distress. CARDIOVASCULAR: Normal rate and rhythm without murmurs, gallops, or rubs. Normal S1/S2. RESPIRATORY: Good respiratory efforts. Breath sounds equal and clear to auscultation bilaterally. No wheezes, rhonchi, crackles. GASTROINTESTINAL: Abdomen soft, non-tender, non-distended. Normal active bowel sounds MUSCULOSKELETAL: Extremities without cyanosis, or edema. NEURO: Alert & oriented x4. CN II-XII grossly intact except minimal right facial droop. Moves all extremities x4. Right hand gas operation manager strength is 4/5 compared to 5/5 on L side. Right lower extremity strength is 4/5 compared to 5/ 5 on the L side. R sided strength slightly improved since yesterday. Mild dysarthria but noticeably better since yesterday. A/P Assessment and Plan 67-year-old male s/p left pontine cerebral infarction 3 days ago. He has mild dysarthria, minimal facial droop, and R sided weakness but symptoms have improved since yesterday. Problem List: 1. L pontine stroke: cerebral infarction due to unspecified occlusion or stenosis of unspecified cerebral artery Continue ASA 325mg and pravastatin 80mg Recommended PT as outpatient upon discharge - [facility] 2. TIA: acute, unspecified 3. Primary HTN: Increased lisinopril from 2.5mg to 5mg daily to keep normotensive BP controlled overnight Pt will follow up with PCP upon discharge 4. DM Type 2: Hold metformin until return to home Accu-checks with SSI Discharge home if pressure remains under control today, cleared by neurology if SBP <170. Concetta Stroud M3 March 16, 2018 08:28
[2018-03-16] MEDS ORDERED: LISINOPRIL 5 MG TAB PO SCH (09:00)
[2018-03-16] MEDS: HYDROCHLOROTHIAZIDE 12.5 MG CAP PO SCH (09:59)
[2018-03-16] MEDS: LISINOPRIL 5 MG TAB PO SCH (09:59)
[2018-03-16] MEDS: ASPIRIN EC 325 MG TABEC PO SCH (09:59)
--- NOTE | 2018-03-16 11:08 | HHI.PR ---
Subjective Remarks Feels better no new motor deficit. Denies cp, sob. Speech feels is improving. No n/v/d/c. Objective Vitals Vital Signs Date Time Temp Pulse Resp B/P (MAP) Pulse Ox O2 Delivery O2 Flow Rate FiO2 03/16/18 08:02 97.8 67 16 151/73 (99) 93 03/16/18 08:00 96 Room Air 03/16/18 04:00 97.6 64 18 141/74 (96) 97 03/16/18 04:00 55 03/16/18 00:00 62 03/16/18 00:00 97.8 74 19 115/92 (100) 96 03/15/18 20:00 76 03/15/18 20:00 Room Air 03/15/18 19:00 98.2 74 20 176/81 (112) 94 03/15/18 16:02 98.2 73 17 178/97 (124) 96 03/15/18 15:50 71 03/15/18 12:10 71 03/15/18 12:02 98.1 73 16 156/89 (111) 97 I/O 03/15/18 03/15/18 03/15/18 03/16/18 03/16/18 03/16/18 07:00 15:00 23:00 07:00 15:00 23:00 Intake Total 0 ml 1020 ml 420 ml 480 ml Output Total 950 ml 1000 ml 600 ml Balance -950 ml 1020 ml -580 ml -120 ml Intake Oral 0 ml 420 ml 480 ml IV Total 1020 ml Output Urine Total 950 ml 1000 ml 600 ml # Bowel Movements 0 1 Result Diagram: 03/13/18 1015 03/13/18 1015 Imaging Last Impressions Neck Magnetic Resonance Angiography 03/13/18 1652 Signed Impressions: Service Date/Time: Tuesday, March 13, 2018 19:02 - CONCLUSION: Normal examination. Javon Peraza MD Head CT 03/13/18 104 Signed Impressions: Service Date/Time: Tuesday, March 13, 2018 11:10 - CONCLUSION: 1. Senescent changes without acute intracranial abnormality. Senthil Davison MD Chest X-Ray 03/13/186 Signed Impressions: Service Date/Time: Tuesday, March 13, 2018 10:52 - CONCLUSION: 1. Minimal left lung base atelectasis/scarring. Senthil Davison MD Head Magnetic Resonance Angiography 03/13/18 Signed Impressions: Service Date/Time: Tuesday, March 13, 2018 14:06 - CONCLUSION: 1. Unremarkable MRA examination. Specifically, no evidence for large vessel occlusion or significant stenosis. Senthil Davison MD Carotid Artery Ultrasound 03/13/18 Signed Impressions: Service Date/Time: Tuesday, March 13, 2018 13:25 - CONCLUSION: 1. Atherosclerotic plaquing of the bifurcations. No hemodynamically significant carotid artery stenosis identified. Piter Chau MD Brain MRI 03/13/18 Signed Impressions: Service Date/Time: Tuesday, March 13, 2018 14:06 - CONCLUSION: 1. Findings consistent with small acute infarct in the left liz. 2. Senescent changes with mild to moderate small vessel periventricular ischemic white matter demyelination. Senthil Davison MD Objective Remarks GENERAL: This is a well-nourished, well-developed patient, in no apparent distress. CARDIOVASCULAR: Normal rate and regular rhythm without murmurs, gallops, or rubs. RESPIRATORY: Good respiratory efforts. Breath sounds equal and clear to auscultation bilaterally. GASTROINTESTINAL: Abdomen soft, non-tender, non-distended. Normal active bowel sounds MUSCULOSKELETAL: Extremities without cyanosis, or edema. NEURO: Minimal right facial droop. Alert & Oriented x4 to person, place, time, situation. Moves all ext x4. Right hand upset operator strength is 4+ out of 5. Right lower extremity strength is 4+ out of 5 compared to 5 out of 5 on the left side. Mild dysarthria. Procedures none A/P Problem List: (1) Left pontine stroke ICD Code: I63.50 - Cerebral infarction due to unspecified occlusion or stenosis of unspecified cerebral artery (2) Transient ischemic attack ICD Code: G45.9 - Transient cerebral ischemic attack, unspecified Status: Acute (3) Hypertension ICD Code: I10 - Essential (primary) hypertension Status: Acute Assessment and Plan 67-year-old male with: Left pontine stroke: Symptoms significantly improved. -Continue aspirin and statin. 2D echocardiogram reviewed normal EF 55-60%. Neurology consulted and followed. PT and speech following. PT recommends PT as OP. Hypertension: Permissive hypertension on admission. Vasotec as needed. Restart HCTZ and lisinopril is increased to 5mg po bid, to titrate to keep normotensive. Says he takes lisinopril at home. Patient to follow up as OP with PCP and neuro. Diabetes mellitus; hold metformin- accu-check with SSI. Resume metformin at home. Discharge home in stable condition to have PT as OP to follow up at [place]. Patient is improving. To follow up as OP with PCP and consultants. Problem Qualifiers (1) Transient ischemic attack: Qualified Codes: G45.9 - Transient cerebral ischemic attack, unspecified (2) Hypertension: Qualified Codes: I10 - Essential (primary) hypertension Leeann Melissa MD March 16, 2018 11:08
[2018-03-16 12:02] VITALS: BP 163/83; PULSE 69; RESP 16; TEMP 98.4; O2SAT 96
[2018-03-16 12:14] LABS: METHYLMALONIC ACID 0.12 nmol/mL (<=0.40)
[2018-03-16 16:20] LABS: ALB/GLOB RATIO (SPE) 1.65 (1.39-2.23)
--- NOTE | 2018-03-17 12:20 | HM ---
Date Performed: 03/14/2018 Time Performed: 13:47:00 HOOKUP DATE: 03/14/18 01:47:00 PM Tue ANALYSIS START TIME: 03/14/2018 1:52:00 PM ANALYSIS END TIME: 03/15/2018 1:25:50 PM PATIENT AGE: 67 PATIENT HEIGHT PATIENT WEIGHT DRUG LIST PATIENT DIAGNOSIS: TIA TEST NARRATIVE: The patient's average heart rate was 64 BPM. No episodes of tachycardia wer e noted. Heart rates less than 50 BPM were noted 13% of the time. No pauses exceeding 2.0 second s were noted. 1 ventricular ectopics, which represented < 1% of the total beat count, were noted. The highest ventricular ectopic frequency occurred from 07:00 AM to 08:00 AM Wed. During this time 1 VE(s) occurred. Ventricular ectopics were observed as 1 isolated beat(s) only. No couplets or ru ns were noted. 4 supraventricular ectopics, which represented < 1% of the total beat count, were noted. The highest supraventricular ectopic frequency occurred from 02:00 PM to 03:00 PM Tue. Thomas winn this time 1 SVE(s) occurred. No episodes of ST depression (defined as -1.0 mm or more) were not ed in channel 1. No episodes of ST depression (defined as -1.0 mm or more) were noted in channel 2. No episodes of ST depression (defined as -1.0 mm or more) were noted in channel 3. TEST INTERPRETATION: Sinus rhythm Rare PVCs No pause, no ventricular tachycardia No supraventricular tachycardia observed There is no entry in the diary Signed by : Kory Zendejas
== END 2018-03-16 15:24 | disposition home or self-care (01) | DRG 66 ==
LOC: NEPE 09:43 → NEDA 13:02 → N04A 15:38
PROVIDERS: ADMIT Hospitalist; ATTEND Hospitalist
DX: I63.50 Cerebral infarction due to unspecified occlusion or stenosis of unspecified cerebral artery (principal); R47.1 Dysarthria and anarthria; I10 Essential (primary) hypertension; E78.5 Hyperlipidemia, unspecified; E11.9 Type 2 diabetes mellitus without complications; Z79.84 Long term (current) use of oral hypoglycemic drugs; Z82.3 Family history of stroke
CPT/HCPCS: 70450; 70544; 70548; 70551; 71045; 80053; 80061; 80307; 81001; 82550; 82607; 82746; 82948; 83921; 84165; 84425; 84439; 84443; 84450; 84460; 84484; 85025; 85610; 85652; 85730; 86038; 86140; 86592; 93005; 93225; 93226; 93306; 93880; 99285; A9579; J1815; J7030

== ENCOUNTER 2018-04-04 19:31 | Emergency (ER) | payer OTHER ==
[~2018-04-04] VITALS: Ht 167.6 cm; Wt 76.5 kg
[~2018-04-04 19:31] MED LIST: ASPI325T33 PO; GLUC500T4 PO; HYDR12.57 PO; LISI-519 PO; METF1000 PO; PRAV80TA2 PO
[2018-04-04 19:38] VITALS: BP_SYST 218; BP_SYST 220; BP_DIAS 100; BP_DIAS 103; PULSE 76; RESP 18; TEMP 98.4; O2SAT 97
[2018-04-04 20:00] VITALS: BP 191/95; PULSE 74; RESP 18; O2SAT 97
[2018-04-04] MEDS ORDERED: METOCLOPRAMIDE INJ 10 MG in SODIUM CHLORIDE 0.9% INJ 50 ML IV ONE (20:00)
[2018-04-04 20:14] LABS: BASOPHIL # 0.1 TH/MM3 (0-0.2); BASOPHIL % 0.8 % (0.0-2.0); EOSINOPHIL # 0.2 TH/MM3 (0-0.4); HEMATOCRIT 47.3 % (39.0-51.0); HEMOGLOBIN 15.7 GM/DL (13.0-17.0); LYMPH % 22.4 % (9.0-44.0); LYMPHOCYTE # 1.7 TH/MM3 (1.0-4.8); MEAN CELL VOLUME 88.8 FL (80.0-100.0); MEAN CORPUSCULAR HEMOGLOBIN 29.4 PG (27.0-34.0); MEAN CORPUSCULAR HGB CONC 33.1 % (32.0-36.0); MEAN PLATELET VOLUME 8.1 FL (7.0-11.0); MONO % 4.9 % (0.0-8.0); MONOCYTE # 0.4 TH/MM3 (0-0.9); NEUT % 68.9 % (16.0-70.0); PLATELET COUNT 301 TH/MM3 (150-450); RED BLOOD COUNT 5.33 MIL/MM3 (4.50-5.90); RED CELL DISTRIBUTION WIDTH 12.2 % (11.6-17.2); WHITE BLOOD COUNT 7.4 TH/MM3 (4.0-11.0)
[2018-04-04 20:23] LABS: CHLORIDE 103 MEQ/L (98-107); SODIUM (NA) 139 MEQ/L (136-145)
[2018-04-04 20:26] LABS: CALCIUM 9.6 MG/DL (8.5-10.1)
[2018-04-04 20:27] LABS: BICARBONATE 30.5 MEQ/L (21.0-32.0); BLOOD UREA NITROGEN 12 MG/DL (7-18); GLUCOSE,RANDOM 238 MG/DL (74-106)
[2018-04-04 20:30] LABS: ALT (GPT) 25 U/L (12-78); AST (GOT) 13 U/L (15-37); GLOMERULAR FILTRATION RATE 74 ML/MIN (>89)
[2018-04-04 20:32] LABS: TOTAL BILIRUBIN ADULT 0.4 MG/DL (0.2-1.0); TOTAL PROTEIN 7.4 GM/DL (6.4-8.2)
[2018-04-04 20:33] LABS: ALKALINE PHOSPHATASE 98 U/L (45-117)
[2018-04-04 20:35] LABS: TROPONIN I LESS THAN 0.02 NG/ML (0.02-0.05)
[2018-04-04 21:00] VITALS: BP 188/93; PULSE 72; RESP 18; O2SAT 97
[2018-04-04] MEDS ORDERED: chlorproMAZINE HCL 25 MG TAB PO ONE (21:15)
--- NOTE | 2018-04-04 21:28 | PD ---
HPI Chief Complaint: GI Complaint Time Seen by Provider: 19:46 Travel History International Travel<30 days: No Contact w/Intl Traveler<30days: No Traveled to known affect area: No History of Present Illness HPI Patient is a 68-year-old male who comes in complaining of hiccups for 2 days. He says that the hiccups have been coming and going, but they will not stay away. They have gotten so bad, that he is vomiting his food. He says he feels like he has indigestion. He denies any abdominal pain or chest pain. He says that this happened a year ago, and Thorazine helped. He used to take Thorazine for PTSD. He denies fever chills. He denies any shortness of breath. He denies any new medications. Severity is mild to moderate. PFSH Past Medical History Arthritis: Yes Anxiety: Yes Depression: Yes Heart Rhythm Problems: No Cancer: No Cardiovascular Problems: Yes High Cholesterol: Yes Chemotherapy: No Chest Pain: No Congestive Heart Failure: No Cerebrovascular Accident: Yes Diabetes: Yes (Metformin ) Patient Takes Glucophage: Yes Endocrine: Yes Genitourinary: No Hypertension: Yes Immune Disorder: No Musculoskeletal: Yes Neurologic: Yes Psychiatric: Yes (PTSD) Reproductive: No Respiratory: No Migraines: No Radiation Therapy: No Seizures: No Thyroid Disease: No Influenza Vaccination: No Past Surgical History Tonsillectomy: Yes Social History Alcohol Use: No Tobacco Use: No Substance Use: No Allergies-Medications (Allergen,Severity, Reaction): Coded Allergies: Sulfa (Sulfonamide Antibiotics) (Verified Allergy, Intermediate, 03/13/18) simvastatin (Verified Allergy, Intermediate, 03/13/18) Iodinated Contrast- Oral and IV Dye (Verified Allergy, Unknown, 03/13/18) Reported Meds & Prescriptions Reported Meds & Active Scripts Active Lisinopril 5 Mg Tab 5 Mg PO BID Aspirin EC (Aspirin) 325 Mg Tabdr 325 Mg PO DAILY 30 Days Reported Pravastatin 80 Mg Tab 80 Mg PO HS Metformin (Metformin HCl) 1,000 Mg Tab 500 Mg PO BIDPC Review of Systems Except as stated in HPI: all other systems reviewed are Neg General / Constitutional: No: Fever, Chills HENT: No: Headaches, Lightheadedness Cardiovascular: No: Chest Pain or Discomfort Respiratory: No: Shortness of Breath Gastrointestinal: Positive: Vomiting, No: Abdominal Pain Musculoskeletal: No: Myalgias Skin: No Rash, No Change in Pigmentation Neurologic: No: Weakness, Dizziness Physical Exam Narrative GENERAL: Awake and alert, in no acute distress. SKIN: Focused skin assessment warm/dry. No wounds or signs of infection. HEAD: Atraumatic. Normocephalic. EYES: Pupils equal and round. No scleral icterus. ENT: Mucous membranes pink and moist. NECK: Trachea midline. No JVD. CARDIOVASCULAR: Regular rate and rhythm. No murmur appreciated. RESPIRATORY: No accessory muscle use. Clear to auscultation. Breath sounds equal bilaterally. GASTROINTESTINAL: Abdomen soft, non-tender, nondistended. MUSCULOSKELETAL: No obvious deformities. No clubbing. No cyanosis. No edema. NEUROLOGICAL: Awake and alert. No obvious cranial nerve deficits. Motor grossly within normal limits. Normal speech. PSYCHIATRIC: Appropriate mood and affect; insight and judgment normal. Data Data Last Documented VS Vital Signs Date Time Temp Pulse Resp B/P (MAP) Pulse Ox O2 Delivery O2 Flow Rate FiO2 04/04/18 21:00 72 18 188/93 (124) 97 Room Air 04/04/18 19:38 98.4 Orders Orders Iv Access Insert/Monitor (04/04/18 19:58) Complete Blood Count With Diff (04/04/18 19:58) Comprehensive Metabolic Panel (04/04/18 19:58) Troponin I (04/04/18 19:58) Electrocardiogram (04/04/18 ) Metoclopramide Inj (Reglan Inj) (04/04/18 20:00) Chlorpromazine (Thorazine) (04/04/18 21:15) Labs Laboratory Tests Test 04/04/18 20:00 White Blood Count 7.4 TH/MM3 Red Blood Count 5.33 MIL/MM3 Hemoglobin 15.7 GM/DL Hematocrit 47.3 % Mean Corpuscular Volume 88.8 FL Mean Corpuscular Hemoglobin 29.4 PG Mean Corpuscular Hemoglobin Concent 33.1 % Red Cell Distribution Width 12.2 % Platelet Count 301 TH/MM3 Mean Platelet Volume 8.1 FL Neutrophils (%) (Auto) 68.9 % Lymphocytes (%) (Auto) 22.4 % Monocytes (%) (Auto) 4.9 % Eosinophils (%) (Auto) 3.0 % Basophils (%) (Auto) 0.8 % Neutrophils # (Auto) 5.0 TH/MM3 Lymphocytes # (Auto) 1.7 TH/MM3 Monocytes # (Auto) 0.4 TH/MM3 Eosinophils # (Auto) 0.2 TH/MM3 Basophils # (Auto) 0.1 TH/MM3 CBC Comment DIFF FINAL Differential Comment Blood Urea Nitrogen 12 MG/DL Creatinine 1.00 MG/DL Random Glucose 238 MG/DL Total Protein 7.4 GM/DL Albumin 4.0 GM/DL Calcium Level 9.6 MG/DL Alkaline Phosphatase 98 U/L Aspartate Amino Transf (AST/SGOT) 13 U/L Alanine Aminotransferase (ALT/SGPT) 25 U/L Total Bilirubin 0.4 MG/DL Sodium Level 139 MEQ/L Potassium Level 3.5 MEQ/L Chloride Level 103 MEQ/L Carbon Dioxide Level 30.5 MEQ/L Anion Gap 6 MEQ/L Estimat Glomerular Filtration Rate 74 ML/MIN Troponin I LESS THAN 0.02 NG/ML MDM Medical Decision Making Medical Screen Exam Complete: Yes Emergency Medical Condition: Yes Medical Record Reviewed: Yes Interpretation(s) ECG shows normal sinus rhythm at a rate of [address] elevation or depression, normal intervals Differential Diagnosis Gastritis versus intractable hiccups versus electrolyte abnormality versus dehydration Narrative Course Patient is a 68-year-old male who comes in complaining of intractable hiccups. Exam shows no acute abnormalities. IV established, labs sent. Labs show no acute abnormalities. Patient given Reglan without any improvement of his symptoms. He is requesting Thorazine at this time. Given a dose of oral Thorazine. Advised follow-up with his doctor. Advised to return to the ED as needed for any worsening symptoms. Diagnosis Primary Impression: Intractable hiccups Patient Instructions: General Instructions, Hiccups (ED) Additional Instructions: Follow-up with your doctor. Return to the ED as needed for any worsening symptoms. Disposition: 01 DISCHARGE HOME Condition: Stable Annamaria Hugo MD Apr 04, 2018 21:28
[2018-04-04 22:28] VITALS: BP_SYST 191
--- NOTE | 2018-04-05 19:07 | EKG ---
Date Performed: 04/04/2018 Time Performed: 20:13:03 PTAGE: 68 years EKG: Sinus rhythm NONSPECIFIC T-WAVE ABNORMALITY BORDERLINE ECG PREVIOUS TRACING : 03/13/2018 10.02 Since the previous tracing, no significant change noted DOCTOR: Jameel Marie Interpretating Date/Time 04/05/2018 19:07:17
== END 2018-04-04 22:35 | disposition home or self-care (01) ==
LOC: PHED 19:31 → EDBD 19:31 → PHED 22:35
DX: R06.6 Hiccough (principal); R94.31 Abnormal electrocardiogram [ECG] [EKG]; E11.9 Type 2 diabetes mellitus without complications; I10 Essential (primary) hypertension; E78.00 Pure hypercholesterolemia, unspecified; F43.10 Post-traumatic stress disorder, unspecified; Z86.73 Personal history of transient ischemic attack (TIA), and cerebral infarction without residual deficits; Z88.2 Allergy status to sulfonamides; Z79.84 Long term (current) use of oral hypoglycemic drugs; Z79.899 Other long term (current) drug therapy
CPT/HCPCS: 80053; 84484; 85025; 93005; 96365; 99284; J2765

== ENCOUNTER 2018-04-17 08:36 | Emergency (ER) | payer OTHER ==
[~2018-04-17] VITALS: Ht 167.6 cm; Wt 80.0 kg
[~2018-04-17 08:36] MED LIST changes: -GLUC500T4 PO; -HYDR12.57 PO
[2018-04-17 08:37] VITALS: BP 206/94; PULSE 83; RESP 16; TEMP 98.8; O2SAT 98
[2018-04-17 08:50] VITALS: BP 207/97; PULSE 68; RESP 18; O2SAT 97
[2018-04-17] MEDS ORDERED: ASPI-183 PO (08:57)
[2018-04-17] MEDS ORDERED: LISI10TA3 PO (08:57)
--- NOTE | 2018-04-17 10:09 | PD ---
HPI . hiccups Chief Complaint: GI Complaint Time Seen by Provider: 08:55 Travel History International Travel<30 days: No Contact w/Intl Traveler<30days: No Traveled to known affect area: No History of Present Illness HPI Patient presents with chief complaint of hiccups. He was seen here on 04/04 for same. At that time, he reported hiccups for 2 days. He had a complete workup done that day. He presents today complaining with continued hiccups. He now has associated abdominal pain which he rates 5/10. He has not seen his doctor. He states that it would not do any good because he goes to the [facility] Past Medical History Arthritis: Yes Anxiety: Yes Depression: Yes Heart Rhythm Problems: No Cardiovascular Problems: Yes High Cholesterol: Yes Chemotherapy: No Chest Pain: No Congestive Heart Failure: No Cerebrovascular Accident: Yes (TIA FEBRUARY 2018) Diabetes: Yes Patient Takes Glucophage: Yes Endocrine: Yes Genitourinary: No Hypertension: Yes Immune Disorder: No Musculoskeletal: Yes Neurologic: Yes Psychiatric: Yes (PTSD) Reproductive: No Respiratory: No Migraines: No Radiation Therapy: No Seizures: No Thyroid Disease: No Past Surgical History Tonsillectomy: Yes Social History Alcohol Use: No Tobacco Use: No Substance Use: No Allergies-Medications (Allergen,Severity, Reaction): Coded Allergies: Sulfa (Sulfonamide Antibiotics) (Verified Allergy, Intermediate, 04/17/18) simvastatin (Verified Allergy, Intermediate, 04/17/18) Iodinated Contrast- Oral and IV Dye (Verified Allergy, Unknown, 04/17/18) Reported Meds & Prescriptions Reported Meds & Active Scripts Active Reported Aspirin 325 Mg Tab 325 Mg PO BID Lisinopril 10 Mg Tab 10 Mg PO BID Pravastatin 80 Mg Tab 80 Mg PO HS Metformin (Metformin HCl) 1,000 Mg Tab 500 Mg PO BIDPC Review of Systems Except as stated in HPI: all other systems reviewed are Neg Physical Exam Narrative GENERAL: Rhythmic, continuous hiccups. SKIN: warm/dry. HEAD: Normocephalic. Atraumatic. EYES: Pupils equal and round. Extraocular movements are intact. No scleral icterus. ENT: Mucous membranes pink and moist. NECK: Supple. Full range of motion without pain.. CARDIOVASCULAR: Regular rate and rhythm. Heart sounds are normal. RESPIRATORY: No accessory muscle use. Clear to auscultation. Breath sounds equal bilaterally. GASTROINTESTINAL: Abdomen soft. Nontender. Bowel sounds present. Nondistended. MUSCULOSKELETAL: No obvious deformities. Normal muscle tone. NEUROLOGICAL: Awake and alert. No obvious cranial nerve deficits. Motor grossly within normal limits. Normal speech. PSYCHIATRIC: Appropriate mood and affect; insight and judgment normal. Data Data Last Documented VS Vital Signs Date Time Temp Pulse Resp B/P (MAP) Pulse Ox O2 Delivery O2 Flow Rate FiO2 04/17/18 08:50 68 18 207/97 (133) 97 Room Air 04/17/18 08:37 98.8 Orders Orders Chlorpromazine Inj (Thorazine Inj) (04/17/18 09:00) Ct Brain W/O Iv Contrast(Rout) (04/17/18 10:13) MDM Medical Decision Making Medical Screen Exam Complete: Yes Emergency Medical Condition: Yes Differential Diagnosis Differential diagnosis of hiccups includes but is not limited to overeating, gas , aerophagia, alcohol abuse, emotional stress, intracranial lesion. Narrative Course This patient presents with persistent hiccups. Onset was approximately April 02. He was seen here on April 04 and had a cardiac type evaluation. I have added a CT of his head today. He has been given a dose of Thorazine IM. Last Impressions Head CT 04/17/18 1013 Signed Impressions: CONCLUSION: 1. Negative for an acute process. This patient is stable for discharge to home. I will give him a prescription for Thorazine. He needs to follow-up at the [facility] if the hiccups continue. Diagnosis Primary Impression: Hiccups Additional Instructions: Follow-up at the [facility] if your hiccups continue. Med/Other Pt SpecificInfo: Prescription(s) given Scripts Chlorpromazine (Chlorpromazine) 25 Mg Tab 25 MG PO Q4H Y for hiccups, #10 TAB 0 Refills Prov: Deidre Breen MD 04/17/18 Disposition: 01 DISCHARGE HOME Condition: Stable Deidre Breen MD Apr 17, 2018 10:09
--- NOTE | 2018-04-17 10:58 | RADRPT ---
EXAM DATE: 04/17/2018 10:36 AM EDT AGE/SEX: 68 years / Male INDICATIONS: Continuous hiccups since 5 am with abdominal pain. CLINICAL DATA: This is the patient's initial encounter. Patient reports that signs and symptoms have been present for 1 day and indicates a pain score of 0/10. MEDICAL/SURGICAL HISTORY: Hypertension. Diabetes. None. RADIATION DOSE: 35.55 CTDI (mGy) COMPARISON: [facility] [place], 03/13/2018. . TECHNIQUE: CT of the head without contrast. Using automated exposure control and adjustment of the mA and/or kV according to patient size, radiation dose was kept as low as reasonably achievable to ob tain optimal diagnostic quality images. FINDINGS: Cerebrum: The ventricles are normal for age. No evidence of midline shift, mass lesion, hemorrhage or acute infarction. No extraaxial fluid collections are seen. Posterior Fossa: The cerebellum and brainstem are intact. The 4th ventricle is midline. The cerebe llopontine angle is unremarkable. Extracranial: The visualized portion of the orbits is intact. Skull: The calvaria is intact. No evidence of skull fracture. CONCLUSION: 1. Negative for an acute process. Electronically signed by: Alan Chau MD 04/17/2018 10:56 AM EDT
[2018-04-17] MEDS ORDERED: CHLO25TA38 PO (11:43)
== END 2018-04-17 12:04 | disposition home or self-care (01) ==
LOC: NEPC 08:36
DX: R06.6 Hiccough (principal); R10.9 Unspecified abdominal pain; I10 Essential (primary) hypertension; E11.9 Type 2 diabetes mellitus without complications; E78.00 Pure hypercholesterolemia, unspecified; Z79.84 Long term (current) use of oral hypoglycemic drugs; Z87.39 Personal history of other diseases of the musculoskeletal system and connective tissue; Z86.59 Personal history of other mental and behavioral disorders; Z86.73 Personal history of transient ischemic attack (TIA), and cerebral infarction without residual deficits; Z86.69 Personal history of other diseases of the nervous system and sense organs
CPT/HCPCS: 70450; 96372; 99283; J3230